=== PATIENT | female | born 1955 | race African-American/Black ===

== ENCOUNTER 2018-08-28 19:20 | Inpatient (IN) | payer MEDICAID ==
[~2018-08-28] VITALS: Ht 165.1 cm; Wt 110.0 kg
[2018-08-28 20:16] LABS: BASOPHILS % 0.7 % (0.0-2.0); EOSINOPHILS % 7.2 % (0.0-5.0); LYMPHOCYTES % 26.4 % (20.0-50.0); MEAN CORPUSCULAR HEMOGLOBIN 25.1 pg (28.0-32.0); MEAN CORPUSCULAR VOLUME 79.8 fL (81.0-99.0); MEAN PLATELET VOLUME 8.2 fl (7.4-10.4); MONOCYTES % 9.6 % (2.0-8.0); NEUTROPHILS % 56.1 % (40.0-76.0); PLATELET 243 x1000/uL (130-400); RED BLOOD CELL COUNT 4.76 mill/uL (4.2-5.4); RED CELL DISTRIBUTION WIDTH 18.3 % (11.6-14.6)
[2018-08-28 20:23] LABS: CHLORIDE 105 mEq/L (98-107)
[2018-08-28 20:31] LABS: PROTHROMBIN TIME 10.1 sec (9.1-11.1)
[2018-08-28] MEDS ORDERED: FUROSEMIDE 20MG/2ML VIAL IVP ONE (20:45)
[2018-08-28] MEDS ORDERED: MORPHINE SULFATE 4 MG/ML CPJ (NOT FOR IM USE) IV ONE (22:00)
[2018-08-28] MEDS ORDERED: ACETAMINOPHEN 325MG TABLET PO PRN (23:30)
[2018-08-28] MEDS ORDERED: DOCUSATE SODIUM 100MG CAPSULE PO PRN (23:30)
[2018-08-28] MEDS ORDERED: GUAIFENESIN 200MG/10ML SUGAR FREE UDC PO PRN (23:30)
[2018-08-28] MEDS ORDERED: CLONIDINE 0.1MG TABLET PO PRN (23:30)
[2018-08-28] MEDS ORDERED: MAGNESIUM/ALUMINUM HYDROXIDE/SIMETHICONE 30ML UDC PO PRN (23:30)
[2018-08-28] MEDS ORDERED: ONDANSETRON HCL 4MG/2ML INJ IV PRN (23:30)
[2018-08-29] MEDS: IPRATROPIUM/ALBUTEROL 0.5-3(2.5)MG/3ML NEB INH SCH ×4 (02:00→21:23)
[2018-08-29] MEDS ORDERED: LEVOFLOXACIN 500MG PREMIX 100 ML IV NR (02:15)
[2018-08-29] MEDS: HYDROCODONE/ACETAMINOPHEN 5/325MG TABLET PO PRN ×3 (02:21→20:56)
[2018-08-29 05:43] LABS: BASOPHILS % 1.1 % (0.0-2.0); EOSINOPHILS % 7.5 % (0.0-5.0); HEMATOCRIT. 37.2 % (36.0-48.0); HEMOGLOBIN. 11.5 g/dL (12.0-16.0); LYMPHOCYTES % 25.6 % (20.0-50.0); NEUTROPHILS % 52.8 % (40.0-76.0); PLATELET 233 x1000/uL (130-400)
[2018-08-29 05:46] LABS: CHLORIDE 106 mEq/L (98-107)
[2018-08-29] MEDS ORDERED: IPRATROPIUM/ALBUTEROL 0.5-3(2.5)MG/3ML NEB ONE (08:19)
[2018-08-29 10:00] VITALS: BP 142/66
[2018-08-29] MEDS ORDERED: COR6 MT (11:09)
[2018-08-29] MEDS ORDERED: ASPI-1158 MT (11:09)
[2018-08-29] MEDS ORDERED: BUSP-29 MT (11:13)
[2018-08-29] MEDS: CARVEDILOL 6.25 MG TABLET PO SCH ×2 (11:15→20:56)
[2018-08-29] MEDS ORDERED: MONT10TA21 MT (11:40)
[2018-08-29] MEDS ORDERED: PANT40TA4 PO (11:40)
[2018-08-29] MEDS ORDERED: SERT-112 MT (11:40)
[2018-08-29] MEDS ORDERED: HYDR-4134 MT (11:40)
[2018-08-29] MEDS ORDERED: POTA10CA42 MT (11:40)
[2018-08-29] MEDS ORDERED: TIOT18CA3 INH (11:40)
[2018-08-29] MEDS ORDERED: ARIP10TA16 MT (11:40)
[2018-08-29] MEDS ORDERED: VALS160T28 MT (11:40)
[2018-08-29] MEDS ORDERED: FAMO20TA8 MT (11:40)
[2018-08-29] MEDS ORDERED: SPIR25TA6 MT (11:40)
[2018-08-29] MEDS ORDERED: SIMV40TA2 MT (11:40)
[2018-08-29] MEDS ORDERED: CLON0.1T14 PO (11:40)
[2018-08-29] MEDS ORDERED: FLUT1DIS3 INH (11:40)
[2018-08-29 12:00] VITALS: BP 141/68
[2018-08-29] MEDS: AMLODIPINE 10MG TABLET PO SCH (12:11)
[2018-08-29] MEDS: SERTRALINE HCL 100MG TABLET PO SCH (12:11)
[2018-08-29] MEDS: FAMOTIDINE 20MG TABLET PO SCH ×2 (12:12→20:56)
[2018-08-29] MEDS: SPIRONOLACTONE 25MG TABLET PO SCH (12:12)
[2018-08-29] MEDS: BUSPIRONE HCL 10MG TABLET PO SCH ×2 (12:12→20:56)
[2018-08-29] MEDS: FUROSEMIDE 40MG/4ML VIAL IV SCH (12:13)
[2018-08-29] MEDS: METHYLPREDNISOLONE SOD SUCC 40 MG/ML VIAL IV SCH (12:13)
[2018-08-29] MEDS: ENOXAPARIN 30MG/0.3ML SYR SUBCUT SCH ×2 (12:13→20:55)
[2018-08-29] MEDS: HYDRALAZINE HCL 25MG TABLET PO SCH ×2 (14:00→21:00)
[2018-08-29 15:51] VITALS: BP 120/57
[2018-08-29 19:57] VITALS: BP 129/64
[2018-08-30] VITALS: BP 133/66
[2018-08-30] MEDS ORDERED: LEVOFLOXACIN 500MG PREMIX 100 ML IV SCH (02:00)
[2018-08-30] MEDS: IPRATROPIUM/ALBUTEROL 0.5-3(2.5)MG/3ML NEB INH SCH ×4 (02:44→21:51)
[2018-08-30 04:00] VITALS: BP 137/64
[2018-08-30] MEDS: HYDRALAZINE HCL 25MG TABLET PO SCH ×3 (06:22→22:11)
[2018-08-30 08:00] VITALS: BP 129/56
[2018-08-30] MEDS: METHYLPREDNISOLONE SOD SUCC 40 MG/ML VIAL IV SCH (09:38)
[2018-08-30] MEDS: AMLODIPINE 10MG TABLET PO SCH (09:39)
[2018-08-30] MEDS: FUROSEMIDE 40MG/4ML VIAL IV SCH (09:39)
[2018-08-30] MEDS: ENOXAPARIN 30MG/0.3ML SYR SUBCUT SCH ×2 (09:39→20:17)
[2018-08-30] MEDS: SERTRALINE HCL 100MG TABLET PO SCH (09:39)
[2018-08-30] MEDS: SPIRONOLACTONE 25MG TABLET PO SCH (09:40)
[2018-08-30] MEDS: CARVEDILOL 6.25 MG TABLET PO SCH ×2 (09:41→20:16)
[2018-08-30] MEDS: BUSPIRONE HCL 10MG TABLET PO SCH ×2 (09:41→20:16)
[2018-08-30] MEDS: HYDROCODONE/ACETAMINOPHEN 5/325MG TABLET PO PRN ×2 (09:42→17:49)
[2018-08-30] MEDS: FAMOTIDINE 20MG TABLET PO SCH ×2 (09:46→20:16)
[2018-08-30 12:09] VITALS: BP 119/62
[2018-08-30 16:00] VITALS: BP 112/64
[2018-08-30] MEDS: MONTELUKAST SODIUM 10MG TABLET PO SCH (17:48)
[2018-08-30 19:42] VITALS: BP 129/63
[2018-08-31] VITALS (7 sets, daily range): BP systolic 117–134; BP diastolic 53–102
[2018-08-31] MEDS: HYDROCODONE/ACETAMINOPHEN 5/325MG TABLET PO PRN ×4 (01:23→12:37)
[2018-08-31] MEDS: IPRATROPIUM/ALBUTEROL 0.5-3(2.5)MG/3ML NEB INH SCH ×3 (03:49→13:48)
[2018-08-31] MEDS ORDERED: LEVOFLOXACIN 500MG PREMIX 100 ML IV SCH (04:00)
[2018-08-31] MEDS: HYDRALAZINE HCL 25MG TABLET PO SCH ×2 (05:44→14:41)
[2018-08-31] MEDS: FUROSEMIDE 40MG/4ML VIAL IV SCH (08:49)
[2018-08-31] MEDS: BUSPIRONE HCL 10MG TABLET PO SCH (08:49)
[2018-08-31] MEDS: FAMOTIDINE 20MG TABLET PO SCH (08:49)
[2018-08-31] MEDS: METHYLPREDNISOLONE SOD SUCC 40 MG/ML VIAL IV SCH (08:49)
[2018-08-31] MEDS: ENOXAPARIN 30MG/0.3ML SYR SUBCUT SCH (08:50)
[2018-08-31] MEDS: CARVEDILOL 6.25 MG TABLET PO SCH (08:51)
[2018-08-31] MEDS: AMLODIPINE 10MG TABLET PO SCH (08:51)
[2018-08-31] MEDS: SPIRONOLACTONE 25MG TABLET PO SCH (09:00)
[2018-08-31] MEDS: SERTRALINE HCL 100MG TABLET PO SCH (09:00)
[2018-08-31] MEDS: MONTELUKAST SODIUM 10MG TABLET PO SCH (17:52)
[2018-09-01] MEDS ORDERED: LEVOFLOXACIN 500MG TABLET PO SCH (11:00)
== END 2018-08-31 18:16 | disposition home or self-care (01) | DRG 133 ==
LOC: ER 19:20 → 6WST 20:43 → EDBEDREQTM 20:45 → EDBEDREQ 20:45 → SUPCPDRO 23:30 → CANRESERV 08-29 07:36 → ENRESERV 08-29 07:36
PROVIDERS: ADMIT Hospitalist; ATTEND Hospitalist
DX: J96.20 Acute and chronic respiratory failure, unspecified whether with hypoxia or hypercapnia (principal); I50.23 Acute on chronic systolic (congestive) heart failure; Z99.81 Dependence on supplemental oxygen; J44.1 Chronic obstructive pulmonary disease with (acute) exacerbation; I11.0 Hypertensive heart disease with heart failure; D86.9 Sarcoidosis, unspecified; F31.9 Bipolar disorder, unspecified; H54.61 Unqualified visual loss, right eye, normal vision left eye; G89.29 Other chronic pain; F41.9 Anxiety disorder, unspecified; Z95.810 Presence of automatic (implantable) cardiac defibrillator; Z86.73 Personal history of transient ischemic attack (TIA), and cerebral infarction without residual deficits
CPT/HCPCS: 36415; 71045; 83605; 83880; 84484; 93005; 93306; 93970; 94640; 96365; 96375; 99285; J1650; J1940; J1956; J2270; J2920; J7050; J7620

== ENCOUNTER 2018-12-07 20:22 | Inpatient (IN) | payer MEDICAID ==
[~2018-12-07] VITALS: Ht 165.1 cm; Wt 109.1 kg
[~2018-12-07 20:22] MED LIST: ARIP10TA16 MT; ASPI-1158 MT; BUSP-29 MT; CLON0.1T14 PO; COR6 MT; FAMO20TA8 MT; FLUT1DIS3 INH; HYDR-4134 MT; MONT10TA21 MT; PANT40TA4 PO; POTA10CA42 MT; SERT-112 MT; SIMV40TA2 MT; SPIR25TA6 MT; TIOT18CA3 INH; VALS160T28 MT
[2018-12-07] MEDS ORDERED: METHYLPREDNISOLONE SOD SUCC 125 MG/2 ML VIAL IV STA (20:46)
[2018-12-07] MEDS ORDERED: LEVOFLOXACIN 750MG PREMIX 150 ML IV ONE (21:00)
[2018-12-07] MEDS ORDERED: IPRATROPIUM/ALBUTEROL 0.5-3(2.5)MG/3ML NEB HHN ONE (21:00)
[2018-12-07] MEDS ORDERED: MAGNESIUM 2 G PREMIX 50 ML IV ONE (21:00)
[2018-12-07 21:09] LABS: BASOPHILS % 0.8 % (0.0-2.0); EOSINOPHILS % 5.2 % (0.0-5.0); HEMATOCRIT. 33.6 % (36.0-48.0); HEMOGLOBIN. 10.7 g/dL (12.0-16.0); LYMPHOCYTES % 23.8 % (20.0-50.0); MEAN CORPUSCULAR VOLUME 78.8 fL (81.0-99.0); MEAN PLATELET VOLUME 8.5 fl (7.4-10.4); MONOCYTES % 10.2 % (2.0-8.0); PLATELET 192 x1000/uL (130-400); RED BLOOD CELL COUNT 4.26 mill/uL (4.2-5.4); RED CELL DISTRIBUTION WIDTH 20.4 % (11.6-14.6)
[2018-12-07 21:12] LABS: CHLORIDE 103 mEq/L (98-107)
[2018-12-07 21:15] LABS: PARTIAL THROMBOPLASTIN TIME 27.8 sec (23.4-31.0); PROTHROMBIN TIME 10.3 sec (9.6-11.0)
[2018-12-07] MEDS ORDERED: ASPIRIN 325MG TABLET PO ONE (22:00)
[2018-12-07] MEDS ORDERED: FUROSEMIDE 40MG/4ML VIAL IVP ONE (22:00)
[2018-12-07 23:24] LABS: BG BASE EXCESS 2.3 mmol/L (-2.0-2.0); BG CARBOXYHEMOGLOBIN 0.4 % (0.5-1.5); BG FRACTION INSPIRED OXYGEN 36; BG HCO3 ACT 28.3 mmol/L (22.0-26.0); BG METHEMOGLOBIN 0.5 % (0.0-1.5); BG OXYGEN SATURATION 93.9 % (92.0-98.5); BG OXYHEMOGLOBIN 93.1 % (94.0-97.0); BG PCO2 50.5 mmHg (35.0-45.0); BG PH 7.366 (7.350-7.450); BG PO2 72.9 mmHg (75.0-100.0); BG SAMPLE SITE RIGHT RADIAL; BG TOTAL HEMOGLOBIN 10.9 g/dL (12.0-18.0); BG VENT MODE NASAL CANNULA
[2018-12-08] VITALS (7 sets, daily range): BP systolic 117–139; BP diastolic 47–65
[2018-12-08] MEDS ORDERED: LORAZEPAM 0.5MG TABLET PO PRN (01:15)
[2018-12-08] MEDS ORDERED: CLONIDINE 0.1MG TABLET PO PRN (01:15)
[2018-12-08] MEDS ORDERED: IPRATROPIUM/ALBUTEROL 0.5-3(2.5)MG/3ML NEB INH PRN (01:15)
[2018-12-08] MEDS ORDERED: ACETAMINOPHEN 325MG TABLET PO PRN (01:15)
[2018-12-08] MEDS ORDERED: ONDANSETRON HCL 4MG/2ML INJ IV PRN (01:15)
[2018-12-08] MEDS ORDERED: GUAIFENESIN 200MG/10ML SUGAR FREE UDC PO PRN (01:15)
[2018-12-08] MEDS ORDERED: DIPHENHYDRAMINE 50MG/ML VIAL IV PRN (01:15)
[2018-12-08] MEDS ORDERED: LEVOFLOXACIN 500MG PREMIX 100 ML IV SCH (01:15)
[2018-12-08] MEDS ORDERED: MAGNESIUM HYDROXIDE 400MG/5ML 30ML UDC PO PRN (01:15)
[2018-12-08] MEDS ORDERED: MAGNESIUM/ALUMINUM HYDROXIDE/SIMETHICONE 30ML UDC PO PRN (01:15)
[2018-12-08 04:27] LABS: CLARITY URINE CLEAR (CLEAR); COLOR URINE YELLOW (YELLOW); KETONES URINE NEGATIVE (NEGATIVE); LEUKOCYTE ESTERASE URINE NEGATIVE (NEGATIVE); NITRITE URINE NEGATIVE (NEGATIVE); OCCULT BLOOD URINE NEGATIVE (NEGATIVE); PROTEIN URINE NEGATIVE (NEGATIVE); SPECIFIC GRAVITY URINE 1.004 (1.005-1.030); UROBILINOGEN URINE 0.2 E.U./dL (0.2-1.0)
[2018-12-08] MEDS: HYDRALAZINE HCL 25MG TABLET PO SCH ×3 (05:42→22:14)
[2018-12-08] MEDS: SODIUM CHLORIDE 0.9% INJ 3ML FLUSH IVF SCH ×3 (06:01→22:30)
[2018-12-08] MEDS: METHYLPREDNISOLONE SOD SUCC 125 MG/2 ML VIAL IV SCH ×3 (06:02→21:13)
[2018-12-08] MEDS: IPRATROPIUM/ALBUTEROL 0.5-3(2.5)MG/3ML NEB HHN SCH ×3 (08:21→20:58)
[2018-12-08] MEDS: CARVEDILOL 6.25 MG TABLET PO SCH ×2 (09:59→22:14)
[2018-12-08] MEDS: GUAIFENESIN 600MG ER TABLET PO SCH ×2 (09:59→22:14)
[2018-12-08] MEDS: FAMOTIDINE 20MG TABLET PO SCH ×2 (09:59→22:14)
[2018-12-08] MEDS: FUROSEMIDE 40MG/4ML VIAL IVP SCH ×2 (09:59→21:00)
[2018-12-08] MEDS: SPIRONOLACTONE 25MG TABLET PO SCH (09:59)
[2018-12-08] MEDS: ENOXAPARIN 30MG/0.3ML SYR SUBCUT SCH ×2 (09:59→22:14)
[2018-12-08] MEDS: BUSPIRONE HCL 5MG TABLET PO SCH ×2 (10:00→22:14)
[2018-12-08] MEDS: AMLODIPINE 10MG TABLET PO SCH (10:00)
[2018-12-08] MEDS: SERTRALINE HCL 100MG TABLET PO SCH (14:04)
[2018-12-08] MEDS: ASPIRIN 81MG EC TABLET PO SCH (16:09)
[2018-12-08 19:30] LABS: *AMPHETAMINES SCREEN URINE NEGATIVE (NEGATIVE); *BARBITURATES SCREEN URINE NEGATIVE (NEGATIVE); *BENZODIAZEPINES SCREEN URINE NEGATIVE (NEGATIVE); *COCAINE SCREEN URINE NEGATIVE (NEGATIVE)
[2018-12-08 19:31] LABS: CANNABINOID URINE SCREEN PRESUMTIVE POSITIVE (NEGATIVE); METHADONE URINE SCREEN NEGATIVE (NEGATIVE); OPIATES URINE SCREEN PRESUMTIVE POSITIVE (NEGATIVE); PHENCYCLIDINE URINE SCREEN NEGATIVE (NEGATIVE)
[2018-12-08] MEDS: LEVOFLOXACIN 500MG PREMIX 100 ML IV SCH (20:55)
[2018-12-09] VITALS: BP 140/76
[2018-12-09] MEDS: IPRATROPIUM/ALBUTEROL 0.5-3(2.5)MG/3ML NEB HHN SCH ×4 (01:35→20:27)
[2018-12-09 04:00] VITALS: BP 138/83
[2018-12-09] MEDS: METHYLPREDNISOLONE SOD SUCC 125 MG/2 ML VIAL IV SCH (05:49)
[2018-12-09] MEDS: SODIUM CHLORIDE 0.9% INJ 3ML FLUSH IVF SCH ×3 (05:50→21:07)
[2018-12-09] MEDS: HYDRALAZINE HCL 25MG TABLET PO SCH ×3 (05:50→21:14)
[2018-12-09 06:36] LABS: BASOPHILS % 0.1 % (0.0-2.0); HEMOGLOBIN. 10.4 g/dL (12.0-16.0); LYMPHOCYTES % 17.3 % (20.0-50.0); MEAN CORPUSCULAR HEMOGLOBIN 25.4 pg (28.0-32.0); MEAN PLATELET VOLUME 8.2 fl (7.4-10.4); MONOCYTES % 4.1 % (2.0-8.0); NEUTROPHILS % 78.5 % (40.0-76.0); PLATELET 198 x1000/uL (130-400); RED BLOOD CELL COUNT 4.11 mill/uL (4.2-5.4); RED CELL DISTRIBUTION WIDTH 20.1 % (11.6-14.6)
[2018-12-09 07:20] LABS: CHLORIDE 102 mEq/L (98-107)
[2018-12-09 07:40] LABS: CREATINE KINASE 30 IU/L (26-192); CREATINE KINASE MB FRACTION < 1.0 ng/mL (0.5-3.6); HDL CHOLESTEROL 54 mg/dL (40-59); LDL CHOLESTEROL 121 mg/dL (5-100)
[2018-12-09 08:00] VITALS: BP 131/74
[2018-12-09] MEDS: FUROSEMIDE 40MG/4ML VIAL IVP SCH ×2 (08:20→21:06)
[2018-12-09] MEDS: AMLODIPINE 10MG TABLET PO SCH (08:20)
[2018-12-09] MEDS: GUAIFENESIN 600MG ER TABLET PO SCH ×2 (08:21→21:06)
[2018-12-09] MEDS: CARVEDILOL 6.25 MG TABLET PO SCH ×2 (08:21→21:07)
[2018-12-09] MEDS: ENOXAPARIN 30MG/0.3ML SYR SUBCUT SCH ×2 (08:21→21:07)
[2018-12-09] MEDS: SPIRONOLACTONE 25MG TABLET PO SCH (08:21)
[2018-12-09] MEDS: BUSPIRONE HCL 5MG TABLET PO SCH ×2 (08:21→21:06)
[2018-12-09] MEDS: FAMOTIDINE 20MG TABLET PO SCH ×2 (08:21→21:06)
[2018-12-09] MEDS: ASPIRIN 81MG EC TABLET PO SCH (08:21)
[2018-12-09] MEDS: SERTRALINE HCL 100MG TABLET PO SCH (08:22)
[2018-12-09] MEDS ORDERED: LIDOCAINE HCL/PF 1% 2ML VIAL ONE (09:10)
[2018-12-09] MEDS: HYDROCODONE/ACETAMINOPHEN 5/325MG TABLET PO PRN ×3 (10:24→21:14)
[2018-12-09 12:00] VITALS: BP 128/62
[2018-12-09] MEDS: PREDNISONE 20MG TABLET PO SCH ×2 (12:00→16:18)
[2018-12-09 14:54] LABS: BG BASE EXCESS 4.3 mmol/L (-2.0-2.0); BG CARBOXYHEMOGLOBIN 0.5 % (0.5-1.5); BG DEOXYHEMOGLOBIN 14.5 % (0.0-5.0); BG FRACTION INSPIRED OXYGEN 21; BG HCO3 ACT 28.7 mmol/L (22.0-26.0); BG METHEMOGLOBIN 0.6 % (0.0-1.5); BG OXYGEN SATURATION 85.3 % (92.0-98.5); BG OXYHEMOGLOBIN 84.4 % (94.0-97.0); BG PCO2 42.2 mmHg (35.0-45.0); BG PH 7.451 (7.350-7.450); BG PO2 49.1 mmHg (75.0-100.0); BG SAMPLE SITE RIGHT RADIAL; BG TOTAL HEMOGLOBIN 11.7 g/dL (12.0-18.0); BG VENT MODE ROOM AIR
[2018-12-09 16:00] VITALS: BP 129/68
[2018-12-09 20:00] VITALS: BP 134/72
[2018-12-10] VITALS (7 sets, daily range): BP systolic 110–147; BP diastolic 62–81
[2018-12-10] MEDS: IPRATROPIUM/ALBUTEROL 0.5-3(2.5)MG/3ML NEB HHN SCH ×3 (01:41→14:50)
[2018-12-10] MEDS: HYDROCODONE/ACETAMINOPHEN 5/325MG TABLET PO PRN ×2 (04:52→11:05)
[2018-12-10] MEDS: LEVOFLOXACIN 500MG PREMIX 100 ML IV SCH (04:53)
[2018-12-10] MEDS: HYDRALAZINE HCL 25MG TABLET PO SCH ×2 (04:55→13:53)
[2018-12-10] MEDS: SODIUM CHLORIDE 0.9% INJ 3ML FLUSH IVF SCH ×2 (04:56→13:53)
[2018-12-10 07:50] LABS: BASOPHILS % 0.3 % (0.0-2.0); HEMATOCRIT. 31.9 % (36.0-48.0); HEMOGLOBIN. 10.4 g/dL (12.0-16.0); MEAN CORPUSCULAR HEMOGLOBIN 25.6 pg (28.0-32.0); MEAN CORPUSCULAR VOLUME 78.1 fL (81.0-99.0); MEAN PLATELET VOLUME 8.6 fl (7.4-10.4); MONOCYTES % 5.6 % (2.0-8.0); NEUTROPHILS % 81.1 % (40.0-76.0); PLATELET 210 x1000/uL (130-400); RED BLOOD CELL COUNT 4.08 mill/uL (4.2-5.4); RED CELL DISTRIBUTION WIDTH 19.9 % (11.6-14.6)
[2018-12-10] MEDS: AMLODIPINE 10MG TABLET PO SCH (08:07)
[2018-12-10] MEDS: GUAIFENESIN 600MG ER TABLET PO SCH (08:07)
[2018-12-10] MEDS: FAMOTIDINE 20MG TABLET PO SCH (08:07)
[2018-12-10] MEDS: BUSPIRONE HCL 5MG TABLET PO SCH (08:08)
[2018-12-10] MEDS: SPIRONOLACTONE 25MG TABLET PO SCH (08:08)
[2018-12-10] MEDS: PREDNISONE 20MG TABLET PO SCH (08:08)
[2018-12-10] MEDS: SERTRALINE HCL 100MG TABLET PO SCH (08:08)
[2018-12-10] MEDS: CARVEDILOL 6.25 MG TABLET PO SCH (08:08)
[2018-12-10] MEDS: ASPIRIN 81MG EC TABLET PO SCH (08:08)
[2018-12-10] MEDS: FUROSEMIDE 40MG/4ML VIAL IVP SCH (08:08)
[2018-12-10] MEDS: ENOXAPARIN 30MG/0.3ML SYR SUBCUT SCH (08:08)
[2018-12-10 09:24] LABS: CHLORIDE 99 mEq/L (98-107)
[2018-12-10] MEDS ORDERED: POTASSIUM CHLORIDE 20MEQ TABLET SR PO NR (14:15)
[2018-12-11] MEDS ORDERED: PREDNISONE 20MG TABLET PO SCH (07:40)
== END 2018-12-10 18:30 | disposition home or self-care (01) | DRG 140 ==
LOC: ER 20:22 → EDBEDREQTM 21:45 → EDBEDREQ 21:45 → ENRESERV 23:00 → 8WST 12-08 00:26
PROVIDERS: ADMIT Internal Medicine; ATTEND Internal Medicine
DX: J44.1 Chronic obstructive pulmonary disease with (acute) exacerbation (principal); J96.00 Acute respiratory failure, unspecified whether with hypoxia or hypercapnia; I50.23 Acute on chronic systolic (congestive) heart failure; I27.81 Cor pulmonale (chronic); J18.9 Pneumonia, unspecified organism; E66.01 Morbid (severe) obesity due to excess calories; F11.20 Opioid dependence, uncomplicated; I42.9 Cardiomyopathy, unspecified; I69.354 Hemiplegia and hemiparesis following cerebral infarction affecting left non-dominant side; D64.9 Anemia, unspecified; E78.5 Hyperlipidemia, unspecified; F12.90 Cannabis use, unspecified, uncomplicated; G89.29 Other chronic pain; F31.9 Bipolar disorder, unspecified; H40.9 Unspecified glaucoma; H54.61 Unqualified visual loss, right eye, normal vision left eye; D86.9 Sarcoidosis, unspecified; K21.9 Gastro-esophageal reflux disease without esophagitis; E78.00 Pure hypercholesterolemia, unspecified; F41.8 Other specified anxiety disorders; I44.7 Left bundle-branch block, unspecified; Z99.81 Dependence on supplemental oxygen; Z83.3 Family history of diabetes mellitus; Z82.49 Family history of ischemic heart disease and other diseases of the circulatory system; Z95.810 Presence of automatic (implantable) cardiac defibrillator; Z87.891 Personal history of nicotine dependence; Z79.82 Long term (current) use of aspirin; Z79.899 Other long term (current) drug therapy; Z68.41 Body mass index [BMI] 40.0-44.9, adult
CPT/HCPCS: 36415; 36600; 71045; 80061; 80305; 82375; 82550; 82553; 82805; 83605; 83735; 83880; 84443; 84484; 85379; 93005; 93970; 94640; 96374; 97162; 99285; C1893; J1650; J1940; J1956; J2930; J3475; J3490; J7050; J7512; J7620

== ENCOUNTER 2019-01-22 15:30 | Inpatient (IN) | payer MEDICAID, OTHER ==
[~2019-01-22] VITALS: Ht 167.6 cm; Wt 120.2 kg
[2019-01-22 16:16] LABS: BASOPHILS % 1.4 % (0.0-2.0); EOSINOPHILS % 10.6 % (0.0-5.0); HEMATOCRIT. 32.8 % (36.0-48.0); HEMOGLOBIN. 10.7 g/dL (12.0-16.0); LYMPHOCYTES % 25.9 % (20.0-50.0); MEAN CORPUSCULAR HEMOGLOBIN 26.3 pg (28.0-32.0); MEAN CORPUSCULAR VOLUME 80.9 fL (81.0-99.0); MONOCYTES % 12.2 % (2.0-8.0); NEUTROPHILS % 49.9 % (40.0-76.0); PLATELET 295 x1000/uL (130-400); RED BLOOD CELL COUNT 4.05 mill/uL (4.2-5.4); RED CELL DISTRIBUTION WIDTH 19.9 % (11.6-14.6)
[2019-01-22 16:58] LABS: CHLORIDE 105 mEq/L (98-107)
[2019-01-22] MEDS ORDERED: MORPHINE SULFATE 4 MG/ML CPJ (NOT FOR IM USE) IV NR (18:15)
[2019-01-22 22:00] VITALS: BP 101/42
[2019-01-22 23:36] VITALS: BP 101/42
[2019-01-23] VITALS: BP 110/48
[2019-01-23] MEDS ORDERED: ACETAMINOPHEN 325MG TABLET PO PRN (01:00)
[2019-01-23] MEDS ORDERED: ONDANSETRON HCL 4MG/2ML INJ IV PRN (01:00)
[2019-01-23] MEDS: MORPHINE SULFATE 2 MG/ML CPJ (NOT FOR IM USE) IV PRN ×2 (01:37→06:41)
[2019-01-23 02:44] LABS: CREATINE KINASE 43 IU/L (26-192)
[2019-01-23 02:45] LABS: CREATINE KINASE MB FRACTION < 1.0 ng/mL (0.5-3.6)
[2019-01-23 04:00] VITALS: BP 107/45
[2019-01-23] MEDS: IPRATROPIUM/ALBUTEROL 0.5-3(2.5)MG/3ML NEB HHN SCH ×3 (05:32→12:07)
[2019-01-23 07:20] LABS: BASOPHILS % 0.8 % (0.0-2.0); EOSINOPHILS % 10.4 % (0.0-5.0); HEMATOCRIT. 32.9 % (36.0-48.0); HEMOGLOBIN. 10.6 g/dL (12.0-16.0); LYMPHOCYTES % 26.6 % (20.0-50.0); MEAN CORPUSCULAR HEMOGLOBIN 26.1 pg (28.0-32.0); MEAN CORPUSCULAR VOLUME 81.3 fL (81.0-99.0); MEAN PLATELET VOLUME 7.9 fl (7.4-10.4); MONOCYTES % 12.8 % (2.0-8.0); NEUTROPHILS % 49.4 % (40.0-76.0); PLATELET 273 x1000/uL (130-400); RED BLOOD CELL COUNT 4.05 mill/uL (4.2-5.4)
[2019-01-23] MEDS ORDERED: PANTOPRAZOLE 40MG DR TABLET PO SCH (07:20)
[2019-01-23 07:29] LABS: CHLORIDE 104 mEq/L (98-107)
[2019-01-23 08:00] VITALS: BP 115/41
[2019-01-23] MEDS ORDERED: ARIPIPRAZOLE 10MG TABLET PO SCH (09:00)
[2019-01-23] MEDS ORDERED: ENOXAPARIN 30MG/0.3ML SYR SUBCUT SCH (09:00)
[2019-01-23] MEDS ORDERED: SPIRONOLACTONE 25MG TABLET PO SCH (09:00)
[2019-01-23] MEDS ORDERED: CARVEDILOL 6.25 MG TABLET PO SCH (09:00)
[2019-01-23] MEDS ORDERED: HYDRALAZINE HCL 25MG TABLET PO SCH (09:00)
[2019-01-23] MEDS ORDERED: BUSPIRONE HCL 10MG TABLET PO SCH (09:00)
[2019-01-23] MEDS ORDERED: ASPIRIN 81MG TABLET PO SCH (09:00)
[2019-01-23] MEDS ORDERED: CLONIDINE 0.1MG TABLET PO SCH (09:00)
[2019-01-23] MEDS ORDERED: SERTRALINE HCL 100MG TABLET PO SCH (09:00)
[2019-01-23] MEDS ORDERED: FAMOTIDINE 20MG TABLET PO SCH (09:00)
[2019-01-23] MEDS ORDERED: ENOXAPARIN 40MG/0.4ML SYR SUBCUT SCH (09:00)
[2019-01-23 11:15] VITALS: BP 102/52
[2019-01-23] MEDS ORDERED: FUROSEMIDE 40MG/4ML VIAL IVP SCH (12:15)
[2019-01-23] MEDS ORDERED: MONTELUKAST SODIUM 10MG TABLET PO SCH (17:00)
[2019-01-23] MEDS ORDERED: POTASSIUM CHLORIDE 10MEQ TABLET SR PO SCH (17:00)
[2019-01-23] MEDS ORDERED: ATORVASTATIN CALCIUM 20MG TABLET PO SCH (21:00)
[2019-01-23] MEDS ORDERED: SIMVASTATIN 40 MG PO SCH (21:00)
[2019-01-24] MEDS ORDERED: AMLODIPINE 2.5MG TABLET PO SCH (09:00)
== END 2019-01-23 16:47 | disposition short-term general hospital (02) | DRG 139 ==
LOC: ER 15:30 → EDBEDREQTM 19:24 → EDBEDREQ 19:24 → 6WST 19:24 → ENRESERV 20:20
PROVIDERS: ADMIT Internal Medicine; ATTEND Internal Medicine
DX: J18.9 Pneumonia, unspecified organism (principal); J96.10 Chronic respiratory failure, unspecified whether with hypoxia or hypercapnia; I27.29 Other secondary pulmonary hypertension; E87.5 Hyperkalemia; Z68.41 Body mass index [BMI] 40.0-44.9, adult; I11.0 Hypertensive heart disease with heart failure; I50.9 Heart failure, unspecified; I27.81 Cor pulmonale (chronic); I42.9 Cardiomyopathy, unspecified; E66.9 Obesity, unspecified; E78.5 Hyperlipidemia, unspecified; J44.9 Chronic obstructive pulmonary disease, unspecified; D86.9 Sarcoidosis, unspecified; H54.61 Unqualified visual loss, right eye, normal vision left eye; F31.9 Bipolar disorder, unspecified; F41.9 Anxiety disorder, unspecified; I44.7 Left bundle-branch block, unspecified; I44.0 Atrioventricular block, first degree; G47.33 Obstructive sleep apnea (adult) (pediatric); Z99.81 Dependence on supplemental oxygen; Z86.718 Personal history of other venous thrombosis and embolism; Z95.810 Presence of automatic (implantable) cardiac defibrillator; Z87.891 Personal history of nicotine dependence; Z79.899 Other long term (current) drug therapy; I69.354 Hemiplegia and hemiparesis following cerebral infarction affecting left non-dominant side
CPT/HCPCS: 36415; 71045; 80048; 82550; 82553; 83880; 84484; 85379; 93005; 93970; 94640; 99285; J1650; J1940; J2270; J7620

== ENCOUNTER 2020-02-14 20:10 | Inpatient (IN) | payer OTHER ==
[~2020-02-14] VITALS: Ht 165.1 cm; Wt 120.7 kg
[~2020-02-14 20:10] MED LIST changes: -ARIP10TA16 MT; +ARIP10TA16 PO; -ASPI-1158 MT; +ASPI-1158 PO; -BUSP-29 MT; +BUSP10TA4 PO; -COR6 MT; +COR6 PO; -FAMO20TA8 MT; +FAMO20TA8 PO; -HYDR-4134 MT; +HYDR-4134 PO; -MONT10TA21 MT; +MONT10TA21 PO; -POTA10CA42 MT; +POTA10CA42 PO; -SERT-112 MT; +SERT-112 PO; -SIMV40TA2 MT; +SIMV40TA2 PO; -SPIR25TA6 MT; +SPIR25TA6 PO; -VALS160T28 MT; +VALS160T28 PO
[2020-02-14] MEDS ORDERED: NITROGLYCERIN 0.4MG TABLET SL SL PRN (22:00)
[2020-02-14] MEDS ORDERED: IPRATROPIUM BROMIDE (0.02%) 0.5MG/2.5ML NEB HHN STA (22:00)
[2020-02-14] MEDS ORDERED: METHYLPREDNISOLONE SOD SUCC 125 MG/2 ML VIAL IV STA (22:00)
[2020-02-14] MEDS ORDERED: ASPIRIN 81MG TABLET PO ONE (22:00)
[2020-02-14] MEDS ORDERED: ALBUTEROL (0.083%) 2.5MG/3ML NEB HHN STA (22:00)
[2020-02-14] MEDS ORDERED: FUROSEMIDE 40MG/4ML VIAL IV ONE (22:00)
[2020-02-14 23:03] LABS: BASOPHILS % 0.9 % (0.0-2.0); EOSINOPHILS % 1.1 % (0.0-5.0); HEMATOCRIT. 34.9 % (36.0-48.0); HEMOGLOBIN. 10.9 g/dL (12.0-16.0); LYMPHOCYTES % 14.4 % (20.0-50.0); MEAN CORPUSCULAR HEMOGLOBIN 26.6 pg (28.0-32.0); MEAN CORPUSCULAR VOLUME 85.4 fL (81.0-99.0); MEAN PLATELET VOLUME 8.2 fl (7.4-10.4); MONOCYTES % 5.8 % (2.0-8.0); NEUTROPHILS % 77.8 % (40.0-76.0); PLATELET 183 x1000/uL (130-400); RED BLOOD CELL COUNT 4.09 mill/uL (4.2-5.4); RED CELL DISTRIBUTION WIDTH 19.9 % (11.6-14.6)
[2020-02-14 23:09] LABS: CHLORIDE 103 mEq/L (98-107)
[2020-02-14 23:13] LABS: INR 0.9; PARTIAL THROMBOPLASTIN TIME < 21.0 sec (23.4-31.0)
[2020-02-14] MEDS ORDERED: CEFTRIAXONE 1 G PREMIX 50 ML IV ONE (23:15)
[2020-02-14] MEDS ORDERED: AZITHROMYCIN 500 MG in DEXT 5% WATER 250 ML IV ONE (23:15)
[2020-02-14 23:20] LABS: CLARITY URINE CLEAR (CLEAR); COLOR URINE YELLOW (YELLOW); KETONES URINE TRACE (NEGATIVE); LEUKOCYTE ESTERASE URINE NEGATIVE (NEGATIVE); NITRITE URINE NEGATIVE (NEGATIVE); OCCULT BLOOD URINE NEGATIVE (NEGATIVE); PROTEIN URINE NEGATIVE (NEGATIVE); SPECIFIC GRAVITY URINE 1.033 (1.005-1.030)
[2020-02-15 05:21] VITALS: BP 131/62
[2020-02-15 05:30] VITALS: BP 131/62
[2020-02-15] MEDS ORDERED: CLONIDINE 0.1MG TABLET PO PRN (07:00)
[2020-02-15 08:00] VITALS: BP 143/89
[2020-02-15] MEDS: METHYLPREDNISOLONE SOD SUCC 125 MG/2 ML VIAL IV SCH ×3 (08:36→20:43)
[2020-02-15] MEDS: CARVEDILOL 6.25 MG TABLET PO SCH ×2 (08:37→20:41)
[2020-02-15] MEDS: FUROSEMIDE 40MG/4ML VIAL IVP SCH ×2 (08:37→17:15)
[2020-02-15] MEDS: ASPIRIN 81MG TABLET PO SCH (08:37)
[2020-02-15] MEDS: SERTRALINE HCL 100MG TABLET PO SCH (08:37)
[2020-02-15] MEDS: POTASSIUM CHLORIDE 10MEQ TABLET SR PO SCH ×2 (08:37→16:30)
[2020-02-15] MEDS: BUSPIRONE HCL 10MG TABLET PO SCH ×2 (08:38→20:41)
[2020-02-15] MEDS: SPIRONOLACTONE 25MG TABLET PO SCH (08:38)
[2020-02-15] MEDS: FAMOTIDINE 20MG TABLET PO SCH ×2 (08:38→20:41)
[2020-02-15] MEDS ORDERED: ENOXAPARIN 40MG/0.4ML SYR SUBCUT SCH ×2 (09:00)
[2020-02-15 09:01] LABS: CHLORIDE 98 mEq/L (98-107)
[2020-02-15 09:23] LABS: BG BASE EXCESS 15.7 mmol/L (-2.0-2.0); BG CARBOXYHEMOGLOBIN 0.8 % (0.5-1.5); BG FRACTION INSPIRED OXYGEN 32; BG HCO3 ACT 45.4 mmol/L (22.0-26.0); BG METHEMOGLOBIN 0.3 % (0.0-1.5); BG OXYGEN SATURATION 94.9 % (92.0-98.5); BG OXYHEMOGLOBIN 93.9 % (94.0-97.0); BG PCO2 86.8 mmHg (35.0-45.0); BG PH 7.336 (7.350-7.450); BG PO2 74.5 mmHg (75.0-100.0); BG SAMPLE SITE LEFT RADIAL; BG TOTAL HEMOGLOBIN 12.3 g/dL (12.0-18.0); BG VENT MODE NASAL CANNULA
[2020-02-15] MEDS ORDERED: NITROGLYCERIN 0.4MG TABLET SL SL PRN (11:15)
[2020-02-15 12:00] VITALS: BP 143/86
[2020-02-15] MEDS ORDERED: ALBUTEROL 6.7GM HFA INHALER ORI SCH (12:00)
[2020-02-15] MEDS ORDERED: IPRATROPIUM/ALBUTEROL 0.5-3(2.5)MG/3ML NEB HHN PRN (13:30)
[2020-02-15] MEDS: HYDROCODONE/ACETAMINOPHEN 10/325MG TABLET PO PRN ×2 (13:59→20:42)
[2020-02-15 16:00] VITALS: BP 128/70
[2020-02-15 20:00] VITALS: BP 135/58
[2020-02-15] MEDS: IPRATROPIUM/ALBUTEROL 0.5-3(2.5)MG/3ML NEB HHN SCH (20:06)
[2020-02-15] MEDS: ENOXAPARIN 30MG/0.3ML SYR SUBCUT SCH (20:43)
[2020-02-15] MEDS ORDERED: MONTELUKAST SODIUM 10MG TABLET PO SCH (21:00)
[2020-02-15] MEDS ORDERED: ATORVASTATIN CALCIUM 40MG TABLET PO SCH (21:00)
[2020-02-16] VITALS: BP 163/77
[2020-02-16] MEDS: IPRATROPIUM/ALBUTEROL 0.5-3(2.5)MG/3ML NEB HHN SCH ×3 (01:06→15:18)
[2020-02-16 04:00] VITALS: BP 140/74
[2020-02-16] MEDS: FUROSEMIDE 40MG/4ML VIAL IVP SCH ×2 (05:55→17:33)
[2020-02-16] MEDS: METHYLPREDNISOLONE SOD SUCC 125 MG/2 ML VIAL IV SCH ×2 (05:55→14:01)
[2020-02-16] MEDS: SPIRONOLACTONE 25MG TABLET PO SCH (05:55)
[2020-02-16] MEDS: HYDROCODONE/ACETAMINOPHEN 10/325MG TABLET PO PRN ×2 (06:06→14:20)
[2020-02-16 08:00] VITALS: BP 127/72
[2020-02-16 08:51] LABS: BG BASE EXCESS 9.7 mmol/L (-2.0-2.0); BG CARBOXYHEMOGLOBIN 1.1 % (0.5-1.5); BG DEOXYHEMOGLOBIN 8.2 % (0.0-5.0); BG FRACTION INSPIRED OXYGEN 32; BG HCO3 ACT 37.1 mmol/L (22.0-26.0); BG METHEMOGLOBIN 0.3 % (0.0-1.5); BG OXYGEN SATURATION 91.7 % (92.0-98.5); BG OXYHEMOGLOBIN 90.4 % (94.0-97.0); BG PCO2 64.5 mmHg (35.0-45.0); BG PH 7.378 (7.350-7.450); BG PO2 64.8 mmHg (75.0-100.0); BG SAMPLE SITE LEFT RADIAL; BG TOTAL HEMOGLOBIN 12.7 g/dL (12.0-18.0); BG VENT MODE NASAL CANNULA
[2020-02-16] MEDS: ASPIRIN 81MG TABLET PO SCH (09:52)
[2020-02-16] MEDS: POTASSIUM CHLORIDE 10MEQ TABLET SR PO SCH ×2 (09:53→17:32)
[2020-02-16] MEDS: ENOXAPARIN 30MG/0.3ML SYR SUBCUT SCH (09:53)
[2020-02-16] MEDS: CARVEDILOL 6.25 MG TABLET PO SCH (09:56)
[2020-02-16] MEDS: BUSPIRONE HCL 10MG TABLET PO SCH (09:57)
[2020-02-16] MEDS: FAMOTIDINE 20MG TABLET PO SCH (09:57)
[2020-02-16] MEDS: SERTRALINE HCL 100MG TABLET PO SCH (09:58)
[2020-02-16 12:00] VITALS: BP 127/72
[2020-02-16 16:00] VITALS: BP 148/73
[2020-02-16 16:54] VITALS: BP 148/73
== END 2020-02-16 18:10 | disposition home or self-care (01) | DRG 133 ==
LOC: ER 20:10 → 7WST 02-15 00:03 → ENRESERV 02-15 01:25 → 5WST 02-15 17:06
PROVIDERS: ADMIT Internal Medicine; ATTEND Internal Medicine
PROC: 5A09357 Assistance with Respiratory Ventilation, Less than 24 Consecutive Hours, Continuous Positive Airway Pressure (ICD-10-PCS; principal; 2020-02-15)
DX: J96.02 Acute respiratory failure with hypercapnia (principal); J44.1 Chronic obstructive pulmonary disease with (acute) exacerbation; I11.0 Hypertensive heart disease with heart failure; F31.9 Bipolar disorder, unspecified; E87.2 Acidosis; R00.1 Bradycardia, unspecified; E66.9 Obesity, unspecified; Z20.828 Contact with and (suspected) exposure to other viral communicable diseases; Z99.81 Dependence on supplemental oxygen; Z79.82 Long term (current) use of aspirin; Z79.899 Other long term (current) drug therapy; Z83.3 Family history of diabetes mellitus; Z82.49 Family history of ischemic heart disease and other diseases of the circulatory system; Z68.41 Body mass index [BMI] 40.0-44.9, adult; I69.354 Hemiplegia and hemiparesis following cerebral infarction affecting left non-dominant side; M94.0 Chondrocostal junction syndrome [Tietze]; I50.23 Acute on chronic systolic (congestive) heart failure
CPT/HCPCS: 36415; 36600; 71045; 80048; 80053; 81003; 82375; 82805; 83605; 83880; 84484; 85025; 87426; 93005; 93306; 94640; 94660; 99285; J0456; J0696; J1650; J1940; J2930; J7060